=== PATIENT | female | born 1995 | race Hispanic/Latino ===

== ENCOUNTER 2017-12-18 22:12 | Emergency (ER) | payer MEDICAID ==
--- NOTE | 2017-12-18 23:51 | XRay Report ---
FINAL REPORT PROCEDURE: XR ANKLE 3+V LT TECHNIQUE: LEFT ankle radiographs, AP, lateral, and oblique views. CPT 31597 HISTORY: swelling and pain L ankle and foot COMPARISON: No prior studies are available for comparison. FINDINGS: Fracture (s) and/or Dislocation(s): None. Alignment: Normal. Joint space(s): Normal. Soft tissues: Moderate degree soft tissue swelling is noted around the ankle. Bone mineralization: Normal. Foreign bodies: None. Calcaneal spurring: None. IMPRESSION: No acute fracture Moderate degree soft tissue swelling.
[2017-12-19] MEDS ORDERED: NORCO 7.5/325 ONE (00:37)
[2017-12-19] MEDS ORDERED: NORCO 7.5/325 PO ONE (00:56)
--- NOTE | 2017-12-19 01:36 | Emergency Department Report ---
ED Lower Extremity HPI - General Chief Complaint: Extremity Injury, Lower Stated Complaint: ANKLE PAIN Time Seen by Provider: 12/19/17 00:31 Source: patient Mode of arrival: Stretcher Limitations: No Limitations - History of Present Illness Initial Comments: 22-year-old female comes in reported that she fell down steps this morning and heard a pop in her left ankle. She comes in with left ankle swelling and foot. Patient reports that she took her mom's Percocet in the pain with relief. Patient reports she was sleeping last night and pain woke her up she reports the pain is a 10 out of 10. Complaint: ankle injury -: hour(s) (12) Injury: Ankle: Left, Foot: Left Type of Injury: inversion, eversion Place: home Severity scale (0 -10): 10 Improves With: other Worsens With: weight bearing (Percocet), movement, palpation Context: fall Associated Symptoms: snap/pop sensation, swelling, numbness Treatments Prior to Arrival: cold therapy - Related Data Previous Rx's Medication Instructions Recorded Last Taken Type Quetiapine Fumarate [SEROquel XR] 50 mg PO QDAY #7 tab.er.24h 01/02/16 Unknown Rx Ibuprofen [Motrin 800 MG tab] 800 mg PO Q8HR PRN #30 tablet 12/19/17 Unknown Rx traMADol [Ultram 50 MG tab] 50 mg PO Q6HR PRN #12 tablet 12/19/17 Unknown Rx Allergies Allergy/AdvReac Type Severity Reaction Status Date / Time Sulfa (Sulfonamide AdvReac Intermediate Hives Verified 06/18/15 18:08 Antibiotics) ED Review of Systems ROS: Stated complaint: ANKLE PAIN Other details as noted in HPI Musculoskeletal: joint swelling (left ankle), arthralgia (left ankle) ED Past Medical Hx - Past Medical History Hx Hypertension: No Hx Congestive Heart Failure: No Hx Diabetes: No Hx Deep Vein Thrombosis: No Hx Renal Disease: No Hx Sickle Cell Disease: No Hx Seizures: No Hx Asthma: Yes (last attack 7yrs old) Hx COPD: No Hx HIV: No - Surgical History Additional Surgical History: - Social History Smoking Status: Current Every Day Smoker Substance Use Type: None - Medications Home Medications: Home Medications Medication Instructions Recorded Confirmed Last Taken Type Quetiapine Fumarate [SEROquel XR] 50 mg PO QDAY #7 tab.er.24h 01/02/16 Unknown Rx Ibuprofen [Motrin 800 MG tab] 800 mg PO Q8HR PRN #30 tablet 12/19/17 Unknown Rx traMADol [Ultram 50 MG tab] 50 mg PO Q6HR PRN #12 tablet 12/19/17 Unknown Rx ED Physical Exam - General Limitations: No Limitations General appearance: alert, in no apparent distress - Head Head exam: Present: atraumatic, normocephalic - Eye Eye exam: Present: EOMI - ENT ENT exam: Present: mucous membranes moist - Neck Neck exam: Present: full ROM - Extremities Exam Extremities exam: Present: joint swelling - Expanded Lower Extremity Exam Left Lower Leg exam: Present: full ROM, tenderness, swelling Ankle exam: Present: full ROM, tenderness, swelling, ecchymosis Foot/Toe exam: Present: full ROM, tenderness, swelling, ecchymosis Neuro vascular tendon exam: Present: no vascular compromise. Absent: pulse deficit (2+), abnormal cap refill Gait: Positive: observed and limited by pain - Psychiatric Psychiatric exam: Present: normal affect, normal mood - Skin Skin exam: Present: warm, dry, intact, normal color. Absent: rash ED Course Vital Signs 12/18/17 12/19/17 23:11 01:02 Temperature 98 F Pulse Rate 85 Respiratory 16 18 Rate Blood Pressure 106/59 O2 Sat by Pulse 99 Oximetry ED Lower Extremity MDM - Medical Decision Making Patient has been evaluated by this provider fast track. Critical care attestation.: If time is entered above; I have spent that time in minutes in the direct care of this critically ill patient, excluding procedure time. ED Disposition Clinical Impression: Mild ankle sprain Qualifiers: Encounter type: initial encounter Laterality: left Qualified Code(s): S93.402A - Sprain of unspecified ligament of left ankle, initial encounter Disposition: DC- TO HOME OR SELFCARE Is pt being admited?: No Does the pt Need Aspirin: No Condition: Stable Additional Instructions: These take pain medication as prescribed. She is crutches and wear Axel bandage and ice 20 minutes on 20 minutes off. For the next 24 hours. Elevate above heart as much as possible. If her symptoms persist or gets worse follow-up with orthopedist Prescriptions: Ibuprofen [Motrin 800 MG tab] 800 mg PO Q8HR PRN #30 tablet PRN Reason: Pain , Severe (7-10) traMADol [Ultram 50 MG tab] 50 mg PO Q6HR PRN #12 tablet PRN Reason: Pain Referrals: PRIMARY CARE, [Primary Care Provider] - 3-5 Days BRENDA RICHARD MD [Staff Physician] - 3-5 Days Forms: Accompanied Note, Work/School Release Form(ED)
[2017-12-19 02:20] VITALS: BP 110/60
== END 2017-12-19 02:20 | disposition home or self-care (01) ==
LOC: ED 22:12
DX: S93.402A Sprain of unspecified ligament of left ankle, initial encounter (principal); J45.909 Unspecified asthma, uncomplicated; F17.200 Nicotine dependence, unspecified, uncomplicated; Z88.2 Allergy status to sulfonamides; W10.9XXA Fall (on) (from) unspecified stairs and steps, initial encounter; Y93.89 Activity, other specified; Y92.89 Other specified places as the place of occurrence of the external cause; Y99.8 Other external cause status
CPT/HCPCS: 99284

== ENCOUNTER 2021-09-17 21:55 | Emergency (ER) | payer SELFPAY ==
[2021-09-17] MEDS ORDERED: SODIUM CHLORIDE 0.9% 1000 ML 1,000 ML IV ONE (22:00)
--- NOTE | 2021-09-17 22:05 | Emergency Department Report ---
ED General Adult HPI - General Chief complaint: Overdose Stated complaint: DRUG OVERDOSE PUI?: No Time Seen by Provider: 09/17/21 22:00 Source: patient, EMS - History of Present Illness Initial comments: 26-year-old female with medical history of PTSD who is on Ambien and also was a history of THC and also amphetamine use brought in by EMS with concerns of unresponsive/overdose found to be pinpoint pupils. EMS gave 2 mg Narcan and patient responded well to it. On arrival patient is alert and oriented and tearful. Patient denies use any kind of substance drugs. According to EMS Narcan was given 20 minutes prior to arrival. Patient denies any other symptoms. - Related Data Previous Rx's Medication Instructions Recorded Last Taken Type Quetiapine Fumarate [SEROquel XR] 50 mg PO QDAY #7 tab.er.24h 01/02/16 Unknown Rx Ibuprofen [Motrin 800 MG tab] 800 mg PO Q8HR PRN #30 tablet 12/19/17 Unknown Rx traMADoL [Ultram 50 MG tab] 50 mg PO Q6HR PRN #12 tablet 12/19/17 Unknown Rx DOXYCYCLINE Hyclate [Vibramycin] 100 mg PO Q12HR 7 Days #14 capsule 08/23/21 Unknown Rx Sertraline [Zoloft] 25 mg PO QDAY #30 tab 08/23/21 Unknown Rx Allergies Allergy/AdvReac Type Severity Reaction Status Date / Time Sulfa (Sulfonamide AdvReac Intermediate Hives Verified 06/18/15 18:08 Antibiotics) ED Review of Systems ROS: Stated complaint: DRUG OVERDOSE Other details as noted in HPI Constitutional: see HPI Eyes: as per HPI ENT: as per HPI Respiratory: see HPI Cardiovascular: as per HPI Endocrine: see HPI Gastrointestinal: as per HPI Genitourinary: as per HPI Musculoskeletal: as per HPI Skin: as per HPI Neurological: as per HPI Psychiatric: as per HPI Hematological/Lymphatic: as per HPI ED Past Medical Hx - Past Medical History Previous Medical History?: Yes Hx Hypertension: No Hx Congestive Heart Failure: No Hx Diabetes: No Hx Deep Vein Thrombosis: No Hx Renal Disease: No Hx Sickle Cell Disease: No Hx Seizures: No Hx Psychiatric Treatment: Yes (Bipolar, PTSD) Hx Asthma: Yes (last attack 7yrs old) Hx COPD: No Hx HIV: No - Surgical History Additional Surgical History: - Social History Smoking Status: Current Every Day Smoker Substance Use Type: None - Medications Home Medications: Home Medications Medication Instructions Recorded Confirmed Last Taken Type Quetiapine Fumarate [SEROquel XR] 50 mg PO QDAY #7 tab.er.24h 01/02/16 Unknown Rx Ibuprofen [Motrin 800 MG tab] 800 mg PO Q8HR PRN #30 tablet 12/19/17 Unknown Rx traMADoL [Ultram 50 MG tab] 50 mg PO Q6HR PRN #12 tablet 12/19/17 Unknown Rx DOXYCYCLINE Hyclate [Vibramycin] 100 mg PO Q12HR 7 Days #14 capsule 08/23/21 Unknown Rx Sertraline [Zoloft] 25 mg PO QDAY #30 tab 08/23/21 Unknown Rx ED Physical Exam - General Limitations: No Limitations General appearance: alert, other (Patient appears to be tearful.) - Head Head exam: Present: atraumatic, normocephalic, normal inspection - Eye Eye exam: Present: normal appearance, PERRL, EOMI Pupils: Present: normal accommodation. Absent: irregular, unequal, miosis, mydriatic - ENT ENT exam: Present: normal exam, normal orophraynx, mucous membranes dry - Neck Neck exam: Present: normal inspection - Respiratory Respiratory exam: Present: normal lung sounds bilaterally - Cardiovascular Cardiovascular Exam: Present: regular rate, normal rhythm - GI/Abdominal GI/Abdominal exam: Present: soft. Absent: distended, tenderness, guarding - Extremities Exam Extremities exam: Present: normal inspection - Back Exam Back exam: Present: normal inspection, full ROM, tenderness - Neurological Exam Neurological exam: Present: oriented X3, CN II-XII intact, normal gait - Psychiatric Psychiatric exam: Present: agitated, anxious. Absent: homicidal ideation, suicidal ideation - Skin Skin exam: Present: intact, normal color ED Course Vital Signs 09/17/21 09/17/21 09/17/21 21:57 22:20 22:30 Temperature 98.1 F Pulse Rate 140 H 111 H Respiratory 20 21 Rate Blood Pressure 169/90 116/61 O2 Sat by Pulse 100 97 99 Oximetry 09/17/21 09/17/21 23:01 23:31 Temperature Pulse Rate 92 H 100 H Respiratory 15 19 Rate Blood Pressure 114/54 108/66 O2 Sat by Pulse 96 97 Oximetry - Reevaluation(s) Reevaluation #1: 09/17/21 23:10 PATIENT IS AOX4; WAITING FOR ALL THE LABS TO RETURN. Reevaluation #2: 09/18/21 00:03 Patient still alert and oriented x4; white blood cell elevated but they are no urine tract infection as patient denies dysuria and also no radiographic infiltration of the pulmonary; therefore I highly doubt this is infectious but more of a stress related. Urine drug screen revealed negative for opiates; therefore, patient stable for discharge as patient has not opiate overdosed. Patient denies suicidal homicidal ideation also denies hallucinations/visual tactile and also auditory. Refer patient to make a follow-up appoint with primary care provider to be seen within 3 to 5 days. Patient informed to return to the ER if there are any new symptoms or concerns or worsening. ED Medical Decision Making - Lab Data Result diagrams: 09/17/21 22:38 09/17/21 22:38 - EKG Data -: EKG Interpreted by Me ([facility]) EKG shows normal: sinus rhythm, axis, intervals, QRS complexes, ST-T waves Rate: normal, tachycardia (SINUS TACHY AT [address] ELEVATION OR DEPRESSION; NO WELLEN WAVES.) Critical care attestation.: If time is entered above; I have spent that time in minutes in the direct care of this critically ill patient, excluding procedure time. ED Disposition Clinical Impression: Tetrahydrocannabinol (THC) use disorder, mild, abuse, Amphetamine abuse, Benzodiazepine abuse Disposition: 01 HOME / SELF CARE / HOMELESS Is pt being admited?: No Does the pt Need Aspirin: No Condition: Stable Instructions: Substance Use Disorder Additional Instructions: Make a follow-up appoint with your primary provider to be seen within 3 days for the emergency room visit follow-up. Time of Disposition: 00:28
--- NOTE | 2021-09-17 22:33 | XRay Report ---
XR chest 1V ap INDICATION / CLINICAL INFORMATION: Altered Mental Status. COMPARISON: 01/01/2016 FINDINGS: SUPPORT DEVICES: None. HEART /PULMONARY VASCULATURE: No significant abnormality. LUNGS / PLEURA: No significant pulmonary or pleural abnormality. No pneumothorax. IMPRESSION: 1. No acute findings. Signer Name: Jonathon Cao MD Signed: 09/17/2021 10:28 PM Workstation Name: [id number]
[2021-09-17 23:16] LABS: Basophils # (Auto) 0.1 K/mm3 (0.0-0.1); Basophils % (Auto) 0.5 % (0.0-1.8); Eosinophils # (Auto) 0.1 K/mm3 (0.0-0.4); Eosinophils % (Auto) 0.6 % (0.0-4.3); Hematocrit 40.2 % (30.3-42.9); Hemoglobin 12.9 gm/dl (10.1-14.3); Lymphocytes # (Auto) 1.5 K/mm3 (1.2-5.4); Lymphocytes % (Auto) 8.3 % (13.4-35.0); Mean Corpuscular HGB Conc 32 % (30-34); Mean Corpuscular Volume 88 fl (79-97); Monocytes % (Auto) 5.5 % (0.0-7.3); Platelet Count 335 K/mm3 (140-440); Red Blood Count 4.56 M/mm3 (3.65-5.03)
[2021-09-17 23:35] LABS: Albumin 4.8 g/dL (3.9-5); Calcium 9.3 mg/dL (8.4-10.2)
[2021-09-17 23:54] LABS: Bilirubin,Urine NEG (Negative); Blood,Urine LG (Negative); Color,Urine Yellow (Yellow); Mucus,Urine 2+ /HPF; Protein,Urine <15 mg/dL mg/dL (Negative); Urobilinogen,Urine < 2.0 mg/dL (<2.0)
[2021-09-17 23:57] LABS: Cocaine Screen,Urine Negative; Methadone Screen,Urine Negative; Opiate Screen,Urine Negative
[2021-09-17 23:59] VITALS: BP 108/66
[2021-09-18 00:12] LABS: Amphetamine Screen,Urine Positive; Benzodiazepines Screen,Urine Positive; Cannabinoid Screen,Urine Positive
--- NOTE | 2021-09-18 10:49 | Electrocardiograph Report ---
[facility] Test Date: 2021-09-17 Test Time: 22:25:32 Pat Name: KATHRYN LUQUE Department: Room: Gender: F Academic Affairs Director: ABBIE Zavaleta : 1995 Requested By: ELMIRA TORRES Order Number: [id number] Reading MD: Rene Andrew Measurements Intervals [place] Rate: 103 P: 68 UT: 151 QRS: 76 QRSD: 104 T: 58 QT: 373 QTc: 488 Interpretive Statements Sinus tachycardia No previous ECG available for comparison Electronically Signed On 09-18-2021 10:49:00 EDT by Rene Andrew
== END 2021-09-18 00:51 | disposition home or self-care (01) ==
LOC: ED 21:55
DX: F15.10 Other stimulant abuse, uncomplicated (principal); F19.10 Other psychoactive substance abuse, uncomplicated; J45.909 Unspecified asthma, uncomplicated; F31.9 Bipolar disorder, unspecified; F17.200 Nicotine dependence, unspecified, uncomplicated; Z88.2 Allergy status to sulfonamides; Z79.899 Other long term (current) drug therapy
CPT/HCPCS: 36415; 71045; 80053; 80307; 81001; 82140; 82550; 85025; 93005; 96360; 99285; J7030; 80320; G0480